=== PATIENT | female | born 1995 | race Caucasian/White ===

== ENCOUNTER 2021-07-22 10:13 | Emergency (ER) | payer OTHER ==
--- NOTE | 2021-07-22 11:41 | EDM.PDOC ---
ED HPI GENERAL MEDICAL PROBLEM - General Chief Complaint: Skin Complaint Stated Complaint: LUMP ON BREAST Time Seen by Provider: 07/22/21 10:25 Source of Information: Reports: Patient History Limitations: Reports: No Limitations - History of Present Illness INITIAL COMMENTS - FREE TEXT/NARRATIVE: The patient presents for a lump in her breast. She said this has been going on for about a month. She went to the walk in clinic last week and an US was ordered. She said it got better for a couple days and now it is much worse. She has no fever, chills, cough. Onset: Gradual Duration: Week(s): Location: Reports: Chest (right breast) Quality: Reports: Sharp Severity: Mild Improves with: Reports: None Worsens with: Reports: None Associated Symptoms: Reports: No Other Symptoms Right Breast Pain Score (Numeric/FACES): 7 - Related Data Allergies Allergy/AdvReac Type Severity Reaction Status Date / Time No Known Allergies Allergy Verified 07/22/21 10:27 Home Meds: Home Meds Adalimumab [Humira Pen] 1 injection INJECT ASDIRECTED 07/22/21 [History] cephALEXin [Keflex] 500 mg PO Q6H #40 cap 07/22/21 [Rx] Past Medical History Cardiovascular History: Reports: Other (See Below) Other Cardiovascular History: Behcet's disease Gastrointestinal History: Reports: Other (See Below) Other Gastrointestinal History: crohn's, colitis - Past Surgical History HEENT Surgical History: Reports: Tonsillectomy Female Surgical History: Reports: Section Musculoskeletal Surgical History: Reports: Other (See Below) Other Musculoskeletal Surgeries/Procedures:: toenail removed Social & Family History - Tobacco Use Tobacco Use Status *Q: Never Tobacco User Second Hand Smoke Exposure: No - Recreational Drug Use Recreational Drug Use: Yes Recreational Drug Type: Reports: Marijuana/Hashish Recreational Drug Use Frequency: Daily ED ROS GENERAL - Review of Systems Review Of Systems: See Below Constitutional: Reports: No Symptoms HEENT: Reports: No Symptoms Respiratory: Reports: No Symptoms Cardiovascular: Reports: No Symptoms Endocrine: Reports: No Symptoms GI/Abdominal: Reports: No Symptoms : Reports: No Symptoms Musculoskeletal: Reports: No Symptoms Skin: Reports: Other (Erythema and edema to the right breast) ED EXAM, SKIN/RASH Exam: See Below Exam Limited By: No Limitations General Appearance: Alert, No Apparent Distress Ears: Normal External Exam Nose: Normal Inspection Head: Atraumatic, Normocephalic Neck: Normal Inspection Respiratory/Chest: No Respiratory Distress, Lungs Clear, Normal Breath Sounds Cardiovascular: Regular Rate, Rhythm, No Edema, No Murmur GI/Abdominal: Soft, Non-Tender, No Organomegaly (Erythema and edema to the right breast just lateral to the nipple), No Mass Course - Vital Signs Last Recorded V/S: Last Vital Signs Temp 98.2 F 07/22/21 10:24 Pulse 68 07/22/21 10:24 Resp 16 07/22/21 10:24 BP 125/82 07/22/21 10:24 Pulse Ox 100 07/22/21 10:24 - Re-Assessments/Exams Free Text/Narrative Re-Assessment/Exam: 07/22/21 12:44 I ordered an US and ti shows findings which are suspicious for infection and early abscess formation. Follow up ultrasound recommended after therapy to make sure hypoechoic area disappears. I will get her some keflex, warm compresses and have her follow up with her provider. Departure - Departure Time of Disposition: 12:50 Disposition: Home, Self-Care 01 Condition: Good Clinical Impression: Breast abscess - Discharge Information *PRESCRIPTION DRUG MONITORING PROGRAM REVIEWED*: Not Applicable *COPY OF PRESCRIPTION DRUG MONITORING REPORT IN PATIENT CAROLINE: Not Applicable Prescriptions: cephALEXin [Keflex] 500 mg PO Q6H #40 cap Referrals: PCP,None [Primary Care Provider] - Forms: ED Department Discharge Additional Instructions: Take the keflex 4 times per day for 10 days. Put warm compresses on the area 3 to 5 times per day for 3 days. Take tylenol or motrin for pain or fever. Please return if you are worse. Follow up with your provider within a week. Sepsis Event Note (ED) - Evaluation Sepsis Screening Result: No Definite Risk - Focused Exam Vital Signs: Vital Signs Temp Pulse Resp BP Pulse Ox 07/22/21 10:24 98.2 F 68 16 125/82 100
--- NOTE | 2021-07-22 12:05 | US ---
Right breast ultrasound: Multiple real-time images were obtained of the right breast from the 9:00 through 12:00 positions. Comparison: No prior breast imaging is available. Hypoechoic area is seen between the 9:00 and 10:00 position located 2-3 cm from the nipple. This finding measures 2.6 x 2.2 x 1.5 cm. Increased vascularity is seen around this area. These findings are suspicious for infection and focal area of early abscess. Impression: 1. Findings as described above which are suspicious for infection and early abscess formation. Follow-up ultrasound recommended after therapy to make sure hypoechoic area disappears. Diagnostic code #3
== END 2021-07-22 13:00 | disposition home or self-care (01) ==
LOC: JD.ED 10:13
DX: N61.1 Abscess of the breast and nipple (principal)
CPT/HCPCS: 76642-RT; 76642-RT-26; 99283-25

== ENCOUNTER 2021-09-11 08:10 | Day surgery (SDC) | payer OTHER ==
[~2021-09-11 08:10] MED LIST: Acetaminophen 325 MG Tab PO ONE; Acetaminophen 325 MG Tab PO SCH; Gabapentin 300 MG Cap PO SCH; Lactated Ringers 1,000 ML IV SCH; Lidocaine 1%/Sod Bicarbonate in NS 8.4% 1 ML Syringe IDERM PRN; Midazolam 1 MG/ML 2 ML SDV ONE; Propofol 200 MG/20 ML SDV ONE; Sodium Chloride 0.9% 10 ML Syringe FLUSH SCH; fentaNYL 100 MCG/2 ML SDV ONE
[2021-09-11] MEDS ORDERED: ceFAZolin 1 GM Vial ONE ×2 (08:50→08:51)
[2021-09-11] MEDS ORDERED: Ondansetron 4 MG/2 ML SDV ONE (08:50)
[2021-09-11] MEDS ORDERED: Scopolamine 1.5 MG Transdermal Patch TRDERM ONE (09:30)
[2021-09-11] MEDS ORDERED: Bupivacaine 0.5% 30 ML SDV ONE (09:44)
[2021-09-11] MEDS ORDERED: Lidocaine 1% with EPINEPHrine 1:100,000 20 ML MDV ONE (09:44)
[2021-09-11] MEDS ORDERED: Midazolam 1 MG/ML 2 ML SDV ONE (10:08)
== END 2021-09-11 11:56 | disposition home or self-care (01) ==
LOC: JD.SDS 08:10
PROVIDERS: ATTEND Surgery
DX: N61.1 Abscess of the breast and nipple (principal); N60.31 Fibrosclerosis of right breast; Z88.8 Allergy status to other drugs, medicaments and biological substances; Z88.1 Allergy status to other antibiotic agents; Z98.890 Other specified postprocedural states; Z87.891 Personal history of nicotine dependence
CPT/HCPCS: 19120; A9270; J0690; J2250; J2405; J2704; J3010; J3490; J7120; 00400

== ENCOUNTER 2022-04-26 15:12 | Emergency (ER) | payer OTHER | END 2022-04-26 18:30 | LOC: JD.ED 15:12 | DX: Z53.21 Procedure and treatment not carried out due to patient leaving prior to being seen by health care provider (principal) ==

== ENCOUNTER 2022-04-27 12:07 | Emergency (ER) | payer SELFPAY ==
[2022-04-27] MEDS ORDERED: Lidocaine 1% with EPINEPHrine 1:100,000 10 ML MDV INJECT ONE (14:37)
== END 2022-04-27 15:15 | disposition home or self-care (01) ==
LOC: JD.ED 12:07
DX: K50.90 Crohn's disease, unspecified, without complications (principal); M25.461 Effusion, right knee; Z79.899 Other long term (current) drug therapy
CPT/HCPCS: 10060; 99283